=== PATIENT | male | born 1950 | race Two or more races ===

== ENCOUNTER → 2018-02-25 | Day surgery (SDC) | payer MEDICARE, OTHER ==
[~2018-02-25] VITALS: Ht 170.2 cm; Wt 78.9 kg
[2018-02-25] VITALS (12 sets, daily range): BP systolic 114–151; BP diastolic 69–80
[~2018-02-25] MED LIST: ASPIRIN EC81 MG ORAL; Atropine Sulfate 0.4mg/ml inj IVP PRN; CALCIUM 500 +1 EAC3 PO; COQ-10100 M1 PO; DiphenhydrAMINE 50mg/ml Inj IVP PRN; HYDROcodone/Acetamin 7.5/325 tab ORAL PRN; Hydromorphone 0.5mg/0.5ml inj IVP PRN; Ketorolac 30mg Inj IV PRN; LIPITOR20 MG ORAL; LORazepam Inj 2mg/ml 1ml IV PRN; LR 1000ml 1,000 ML IVLG SCH; LR 1000ml ONE; Lidocaine 1% MPF 10mg/ml 5ml ONE; Meperidine 50mg/ml Inj(FOR RIGORS ONLY) IVP PRN; Metoclopramide 10mg/2ml Inj IVP PRN; Midazolam 2mg/2ml Inj IVP PRN; Midazolam 2mg/2ml Inj ONE; Norco 5mg/325mg tab ORAL PRN; Propofol 200mg/20ml IV ONE; fentaNYL 100 mcg/2 mL IV PRN; oxyCODONE HCL/Acetaminophen 5/325mg ORAL PRN
--- NOTE | 2018-02-25 07:48 | Short Stay Surgery H&P ---
History of Present Illness History of Present Illness Chief Complaint abdominal pains and screening colonoscopy HPI Al Nina is a 68 year old male who was admitted on for Abdominal Pain/ screening colon Patient History Allergies: Uncoded Allergies: NO KNOWN DRUG ALLERGY (Allergy, 02/28/13) PAST MEDICAL HISTORY: (1) Hyperlipidemia (2) Diverticulosis Medication History Scheduled Aspirin Ec* (Aspirin Ec*), 81 MG ORAL DAILY, (Reported) Atorvastatin Calcium* (Lipitor*), 20 MG ORAL BEDTIME, (Reported) Calcium Carbonate/Vitamin D3 (Calcium 500 + D Tablet), 1 EACH PO DAILY, ( Reported) Ubidecarenone (Coq-10), 100 MG PO 3, (Reported) Review of Systems Cardiovascular: Reports: no symptoms Respiratory: Reports: no symptoms Skeletal: Reports: no symptoms Gastrointestinal: Reports: other Genitourinary: Reports: no symptoms Neurologic: Reports: no symptoms Endocrine: Reports: no symptoms Hematologic: Reports: no symptoms Physical Exam Vital Signs Last Vital Signs Date Time Temp Pulse Resp B/P (MAP) Pulse Ox O2 Delivery O2 Flow Rate FiO2 02/25/18 07:42 97.1 61 20 136/75 99 Room Air Skin: normal HENT: normal Heart: normal Lungs: normal Abdomen: normal Extremities: normal Genitourinary: normal Plan Plan of Care Upper and lower GI endoscopy Preop Interventions None Summary of Findings See the reports Attestation Are the patient's medical conditions optimized for surgery? Attestation Response: yes Maureen Marrero MD Feb 25, 2018 07:48
--- NOTE | 2018-02-25 07:49 | Pre-Procedure Note/Attestation ---
Pre-Procedure Note/Attestation Complete Prior to Procedure Planned Procedure: left Procedure Narrative: Examination of the upper and the lower GI tract via endoscopy Indications for Procedure Pre-Operative Diagnosis: R/O gastritis/colon polyp/cancer Attestation I attest that I discussed the nature of the procedure; its benefits; risks and complications; and alternatives (and the risks and benefits of such alternatives ), prior to the procedure, with the patient (or the patient's legal visitor services representative). I attest that, if there was a reasonable possibility of needing a blood transfusion, the patient (or the patient's legal visitor services representative) was given the [place] [facility] standardized written summary, pursuant to the [employer] Blood Safety Act ([place] Health and Safety Code # 1645, as amended). I attest that I re-evaluated the patient just prior to the surgery and that there has been no change in the patient's H&P, except as documented below: Maureen Marrero MD Feb 25, 2018 07:49
--- NOTE | 2018-02-25 08:23 | Anethesia Preoperative Eval ---
Anesthesia Pre-op PMH/ROS General Date of Evaluation: Feb 25, 2018 Time of Evaluation: 07:41 Anesthesiologist: Jen ASA Score: ASA 3 Mallampati Score Class I : Soft palate, uvula, fauces, pillars visible Class II: Soft palate, uvula, fauces visible Class III: Soft palate, base of uvula visible Class IV: Only hard plate visible Mallampati Classification: Class III Surgeon: Elida Diagnosis: Abd Pain Surgical Procedure: EGD/Colonoscopy Anesthesia History: none Family History: no anesthesia problems Allergies: Uncoded Allergies: NO KNOWN DRUG ALLERGY (Allergy, 02/28/13) Medications: see eMAR Patient NPO?: Yes Past Medical History Cardiovascular: Reports: HTN, other - HL Anesthesia Pre-op Phys. Exam Physician Exam Last Vital Signs Date Time Temp Pulse Resp B/P (MAP) Pulse Ox O2 Delivery O2 Flow Rate FiO2 02/25/18 08:18 56 14 129/72 97 Nasal Cannula 2 02/25/18 07:42 97.1 Constitutional: NAD Neurologic: CN 2-12 intact Cardiovascular: RRR Respiratory: CTA Gastrointestinal: S/NT/ND Airway Exam Mallampati Score: Class III MO: limited ROM: limited Teeth: intact Anesthesia Pre-op A/P Risk Assessment & Plan Assessment: ASA 3 Plan: TIVA Status Change Before Surgery: Leonard Daly MD Feb 25, 2018 08:23
--- NOTE | 2018-02-25 08:23 | Discharge Instructions ---
Discharge Instructions Discharge Instructions Follow up with: Visit the doctor in office after 2 weeks For Congestive Heart Failure Reminder Report to your physician any weight gain of 5 pounds or more in one week. Maureen Marrero MD Feb 25, 2018 08:23
--- NOTE | 2018-02-25 08:23 | Endoscopy Procedure Note ---
Endoscopy Procedure Note General Indication for Procedure: Abdominal pain/screening colonoscopy Procedures Performed: EGD - Completely normal Upper GI endoscopy, biopsy obtained per random from gastric body., colonoscopy - Minimal inernal hemorrhoids and left colonic diverticluosis; otherwise normal colonoscopy. Specimen: yes Pt Tolerated Procedure Well: Yes Estimated Blood Loss: none Anesthesia Anesthesiologist: Dr. Li Anesthesia: moderate sedation Medications Medication Given: see anesthesia record Inserted Devices Implant(s) used?: No Quality Quality of Bowel Preparation: Fair Did scope reach the cecum?: Yes Was there any complications?: No GI Core Measures 50 yrs or older w/o bx or poly: Yes 10yrs. F/U not recommended: Not Applicable 10 yrs. F/U needed: Yes 18 years or older w/prev. colo: No <3yrs. since last colonoscopy: No Med reason:<3 yrs.: System Reason:<3 yrs.: Last colonoscopy >= to 3yrs: Yes Maureen Marrero MD Feb 25, 2018 08:22
--- NOTE | 2018-02-25 08:24 | 48 Hour Post Anesthesia Eval ---
Post Anesthesia Evaluation Procedure: EGD/Colonoscopy Date of Evaluation: Feb 25, 2018 Time of Evaluation: 10:52 Blood Pressure Systolic: 145 0: 77 Pulse Rate: 64 Respiratory Rate: 18 Temperature (Fahrenheit): 98.2 O2 Sat by Pulse Oximetry: 99 Airway: patent Nausea: No Vomiting: No Pain Intensity: 2 Hydration Status: adequate Cardiopulmonary Status: Stable Mental Status/LOC: patient returned to baseline Follow-up Care/Observations: 0 Post-Anesthesia Complications: 0 Follow-up care needed: ready to discharge Leonard Li MD Feb 25, 2018 08:24
--- NOTE | 2018-02-25 08:24 | Immediate Post-Op Evaluation ---
Immediate Post-Op Evalulation Immediate Post-Op Evalulation Procedure: EGD/Colonoscopy Date of Evaluation: Feb 25, 2018 Time of Evaluation: 08:44 IV Fluids: 300 LR Blood Products: 0 Estimated Blood Loss: 1 Urinary Output: 0 Blood Pressure Systolic: 119 Blood Pressure Diastolic: 69 Pulse Rate: 50 Respiratory Rate: 16 O2 Sat by Pulse Oximetry: 100 Temperature (Fahrenheit): 97.2 Pain Score (1-10): 2 Nausea: No Vomiting: No Complications 0 Patient Status: awake, reacts, patent, none Hydration Status: adequate Leonard Li MD Feb 25, 2018 08:24
--- NOTE | 2018-02-25 10:15 | Operative Note - Dictated ---
DATE OF OPERATION: 02/25/2018 PROCEDURE: Esophagogastroduodenoscopy with biopsy. PREOPERATIVE DIAGNOSIS: Abdominal pain. POSTOPERATIVE DIAGNOSIS: Completely normal upper GI endoscopy. Random biopsy was done from gastric body. MEDICATION USED: Per Dr. Li. INSTRUMENT: GIF Olympus upper GI video endoscope. DESCRIPTION OF PROCEDURE: The patient after arriving an endoscopy unit, was told about risks and benefits of the procedure, which he accepted and signed informed consent. At this time, he was put on the left lateral decubitus position. After adequate IV sedation, the scope was gently passed through the cricopharyngeal area, was lodged into the upper esophagus and gradually advanced towards gastroesophageal junction. The entire length of esophagus was normal. At this time, the scope was advanced into the GE junction, which was normal and there was no any evidence of Reynolds's or hiatal hernia. Subsequently, the gastric cavity was distended with insufflation of air and the areas of the fundus and the body and the antrum were examined in an sales engineer engineered products fashion, which revealed complete normal mucosal covering of the stomach without any evidence of polyps, tumors, ulcers, bleeding site, hemangioma, etc. At this point, the scope was retroflexed and the area of the gastroesophageal junction was examined in a closer view and this did not reveal any abnormality. One random biopsy from gastric body obtained and subsequently scope was passed through the antrum, pylorus, and first and second portion of duodenum were examined that they were completely normal. The scope at this time was pulled out and procedure was terminated. The patient tolerated the procedure well and left the endoscopy room in a good condition. FINAL DIAGNOSIS: Completely normal upper GI endoscopy. Said Leny Marrero DR: TAYLER JOB#: [id number] CC:
--- NOTE | 2018-02-25 10:30 | Operative Note - Dictated ---
DATE OF OPERATION: 02/25/2018 PROCEDURE: Total colonoscopy. PREOPERATIVE DIAGNOSIS: Screening colonoscopy. POSTOPERATIVE DIAGNOSES: 1. Minimal internal hemorrhoid. 2. Diverticulosis of the left colon, otherwise total normal colonoscopy. MEDICATION USED: Per Dr. Li, anesthesiologist. INSTRUMENT: GIF Olympus video colonoscope. DESCRIPTION OF PROCEDURE: The patient after arriving endoscopy unit, was told about risks and benefits of the procedure, which he accepted and signed informed consent. At this point, he was put in the left lateral decubitus position. After adequate IV sedation, the scope was gently passed through the anal area and a retroflexion maneuver, which was applied in this section revealed minimal internal hemorrhoids, which were not friable. There was no tumor, polyps, colitis, ulcers, etc., in the rectum. At this point, the scope was passed through the rectosigmoid area was advanced into the left colon, which revealed numerous diverticular lesions all the way up to the splenic flexure. However, there were no polyps or inflammatory process, tumors, etc. At this point, the scope was gradually advanced towards the transverse colon and hepatic flexure, right colon all the way to the base of the cecum as the appendiceal opening was also visualized. These areas were completely normal. The colon cleanup was fair and there was liquidy stool along the colon, which made the examination difficult and required irrigation water. Finally within 7 minutes, the scope was gradually pulled out and reexamination of the colon did not add any other pathologies. The patient tolerated the procedure well and left the endoscopy room in a good condition. Said Leny Marrero DR: TAYLER JOB#: [id number] CC:
== END | disposition home or self-care (01) ==
LOC: SDS 07:10
DX: Z12.11 Encounter for screening for malignant neoplasm of colon (principal); K64.8 Other hemorrhoids; K57.90 Diverticulosis of intestine, part unspecified, without perforation or abscess without bleeding; E78.5 Hyperlipidemia, unspecified; I10 Essential (primary) hypertension
CPT/HCPCS: 43239; G0121; J2250; J2704; 94003; 94150